=== PATIENT | female | born 1980 | race Caucasian/White ===

== ENCOUNTER 2016-07-12 15:50 | Emergency (ER) | payer OTHER ==
[2016-07-12 16:03] VITALS: BP 110/71
--- NOTE | 2016-07-12 16:44 | UC ---
Respiratory Complaint HPI - HPI Summary HPI Summary: 36 yo female with 5 days of f/c, sinus pressure and pain ear hurt no cp or sob - History of Current Complaint Chief Complaint: UCGeneralIllness Stated Complaint: SINUSES Time Seen by Provider: 07/12/16 16:37 Hx Obtained From: Patient Hx Last Menstrual Period: 06/18/16 Onset/Duration: Gradual Onset, Lasting Days Timing: Constant Severity Initially: Moderate Severity Currently: Moderate Pain Intensity: 4 Pain Scale Used: 0-10 Numeric Character: Cough: Nonproductive Aggravating Factors: Nothing Alleviating Factors: Nothing Associated Signs And Symptoms: Positive: Nasal Congestion, Sinus Discomfort - Allergies/Home Medications Allergies/Adverse Reactions: Allergies Allergy/AdvReac Type Severity Reaction Status Date / Time No Known Allergies Allergy Verified 07/12/16 16:03 PMH/Surg Hx/FS Hx/Imm Hx Previously Healthy: Yes - Surgical History Surgical History: None - Family History Known Family History: Positive: Cardiac Disease, Diabetes, Other - [place] - Social History Alcohol Use: None Substance Use Type: None Smoking Status (MU): Never Smoked Tobacco - Immunization History Most Recent Influenza Vaccination: no Review of Systems Constitutional: Fever, Chills, Fatigue Skin: Negative Eyes: Negative ENT: Ear Ache, Nasal Discharge Respiratory: Cough Cardiovascular: Negative Gastrointestinal: Negative Genitourinary: Negative Motor: Negative Neurovascular: Negative Musculoskeletal: Negative Neurological: Negative Psychological: Negative All Other Systems Reviewed And Are Negative: Yes Physical Exam Triage Information Reviewed: Yes Appearance: Well-Appearing, No Pain Distress Vital Signs: Initial Vital Signs Temp 100.3 F 07/12/16 16:00 Pulse 78 07/12/16 16:00 Resp 14 07/12/16 16:00 BP 110/71 07/12/16 16:00 Pulse Ox 100 07/12/16 16:00 Vital Signs Reviewed: Yes Eyes: Positive: Conjunctiva Clear ENT: Positive: Hearing grossly normal, Other: - bilat max sinus tenderness. Negative: Nasal congestion, Nasal drainage, Tonsillar exudate, Trismus, Muffled/ hoarse voice Neck: Positive: Supple, Nontender, No Lymphadenopathy Respiratory: Positive: Lungs clear, Normal breath sounds, No respiratory distress Cardiovascular: Positive: RRR, No Murmur Musculoskeletal: Positive: ROM Intact, No Edema Neurological Exam: Normal Neurological: Positive: Alert Skin Exam: Normal UC Diagnostic Evaluation - Laboratory O2 Sat by Pulse Oximetry: 100 - normal.not hypoxic Respiratory Course/Dx - Differential Dx/Diagnosis Provider Diagnoses: acute sinusitis Discharge - Discharge Plan Condition: Stable Disposition: HOME Prescriptions: Amoxicillin (*) 875 mg PO BID #20 tab Patient Education Materials: Sinusitis (ED) Referrals: Nicole Delacruz MD [Primary Care Provider] - 5 Days (if needed) Additional Instructions: continue saline nasal spray recheck next week if not better
== END 2016-07-12 16:56 | disposition home or self-care (01) ==
LOC: UCCORT 15:50
DX: J01.90 Acute sinusitis, unspecified (principal)
CPT/HCPCS: 99212; G0463

== ENCOUNTER 2017-09-15 09:08 | Emergency (ER) | payer OTHER ==
[2017-09-15 09:29] VITALS: BP 128/79
--- NOTE | 2017-09-15 09:57 | ED ---
Throat Pain/Nasal Congestion - HPI Summary HPI Summary: 37 yr old with right eye redness, pain. Onset of symptoms yesterday with redness to the lateral globe area, and then irritation feeling. She then felt like she had more irritation to the eye, and has also some pressure sensation inferior to the right ear, and inferior to the right globe in the maxillary area as well as in the right forehead area. No facial weakness, no change in volume of her hearing, no change in taste. No fever, chills. No sinus drainage. No change in her vision. No FB sensation. She does not wear contact lenses. She wears eye glasses. - History of Current Complaint Chief Complaint: UCEye Time Seen by Provider: 09/15/17 09:35 - Allergies/Home Medications Allergies/Adverse Reactions: Allergies Allergy/AdvReac Type Severity Reaction Status Date / Time environmental Allergy Pain Uncoded 09/15/17 09:29 Home Medications: Home Medications Magnesium 500mg 1 tab PO DAILY 09/15/17 [History Confirmed 09/15/17] Multivitamin [Multivitamins] 1 each PO DAILY 09/15/17 [History Confirmed ] Simethicone [Gas-X Extra Strength] 125 mg PO BID 09/15/17 [History Confirmed 11/26] Zolpidem Tartrate 0.5 mg PO DAILY 09/15/17 [History Confirmed 09/15/17] PMH/Surg Hx/FS Hx/Imm Hx Previously Healthy: Yes Infectious Disease History: No Infectious Disease History: Denies: Traveled Outside the [place] in Last 30 Days - Family History Known Family History: Positive: None, Cardiac Disease, Diabetes, Other - [place] - Social History Occupation: Employed Full-time Alcohol Use: Occasionally Substance Use Type: Reports: None Smoking Status (MU): Never Smoked Tobacco Review of Systems Constitutional: Negative Positive: Erythema. Negative: Photophobia, Blurred Vision, Diplopia, Drainage All Other Systems Reviewed And Are Negative: Yes Physical Exam Triage Information Reviewed: Yes Vital Signs On Initial Exam: Initial Vitals Temp Pulse Resp BP Pulse Ox 99 F 78 18 128/79 100 09/15/17 09:20 09/15/17 09:20 09/15/17 09:20 09/15/17 09:20 09/15/17 09:20 Vital Signs Reviewed: Yes Appearance: Positive: Well-Appearing, No Pain Distress Skin: Positive: Warm, Skin Color Reflects Adequate Perfusion Head/Face: Positive: Normal Head/Face Inspection Eyes: Positive: EOMI, JD, Conjunctiva Inflammed - minimal in right eye. Sclera mild red on the lateral right eye., Other: - Flouroscein and tetracain applied to the right eye. No uptake of flourscein seen on gutierrez lamp. Patient going to Opthamology for full eye exam shortly.. Negative: Discharge ENT: Positive: Normal ENT inspection, Pharynx normal, TMs normal, Other - no vesicles in external ear canal.. Negative: TM bulging, TM dull, TM red Neck: Positive: Nontender Respiratory/Lung Sounds: Positive: Other - normal effort Abdomen Description: Negative: Distended Musculoskeletal: Positive: Strength/ROM Intact Neurological: Positive: Sensory/Motor Intact, Alert, Oriented to Person Place, Time, CN Intact II-III, Normal Gait, Speech Normal. Negative: Facial Droop Psychiatric: Positive: Normal - [place] Coma Scale Best Eye Response: 4 - Spontaneous Best Motor Response: 6 - Obeys Commands Best Verbal Response: 5 - Oriented Coma Scale Total: 15 Diagnostics - Vital Signs Vital Signs Temp Pulse Resp BP Pulse Ox 09/15/17 09:20 99 F 78 18 128/79 100 - Laboratory Lab Statement: Any lab studies that have been ordered have been reviewed, and results considered in the medical decision making process. EENT Course/Dx - Course Course Of Treatment: 37 yr old female with right eye complaint, without obvious conjunctivitis. She has appointment with Opthomology in a few hours, and will keep that appointment. - Diagnoses Provider Diagnoses: Irritation of right eye Discharge - Sign-Out/Discharge Documenting (check all that apply): Discharge/Admit/Transfer - Discharge Plan Condition: Good Disposition: HOME Patient Education Materials: Conjunctivitis (ED) Referrals: Germaine Pulido PA [Primary Care Provider] - Additional Instructions: Be sure to keep your appointment at Dr Aishwarya Pierre office at [facility] this afternoon. If you have any change in your vision, worse pain, worse redness or new developments please to the the Emergency Room for further evaluation. - Billing Disposition and Condition Condition: GOOD Disposition: HOME
[2017-09-15] MEDS ORDERED: Tetracaine 0.5% OPTH.SOL 4 ML* 1 DROP BTL RIGHT EYE ONE (09:59)
[2017-09-15] MEDS ORDERED: Fluorescein Sod TOPICAL 0.6* 0.6 MG TEST OPHTHALMIC ONE (10:00)
== END 2017-09-15 10:26 | disposition home or self-care (01) ==
LOC: UCCORT 09:08
DX: H57.8 Other specified disorders of eye and adnexa (principal)
CPT/HCPCS: 99211; A9270-GY; G0463